=== PATIENT | male | born 1995 | race Caucasian/White ===

== ENCOUNTER 2019-02-13 15:58 | Emergency (ER) | payer OTHER ==
[~2019-02-13] VITALS: Ht 167.6 cm; Wt 93.9 kg
[2019-02-13 16:09] VITALS: BP 106/76; Ht 167.6 cm; Wt 93.9 kg
== END 2019-02-13 17:45 | disposition left against medical advice (07) ==
LOC: EDBD 15:58 → ED 15:58
DX: Z53.21 Procedure and treatment not carried out due to patient leaving prior to being seen by health care provider (principal)